=== PATIENT | female | born 1975 | race African-American/Black ===

== ENCOUNTER → 2017-07-13 | Emergency (ER) | payer SELFPAY ==
[~2017-07-13] VITALS: Ht 167.6 cm; Wt 71.7 kg
[2017-07-13 14:00] VITALS: BP 126/60
[2017-07-13 14:15] VITALS: BP 126/60
--- NOTE | 2017-07-13 14:38 | Emergency Room Report ---
History of Present Illness General Chief Complaint: Skin Rash/Abscess Source: Patient, EMS Present Illness HPI 42-year-old female brought in by ambulance for "rash" to right lower extremity 4 or 5 months. Patient states she just got back from [place] where she was visiting her mother for many months. Patient states she cames from [facility] where it [facility] sent her to the ER for IV antibiotics. patient states she's on prednisone daily, and additional antibiotics. Denies history of diabetes. Denies any new trauma, fever or chills. As I was discussing HPI, I began removing JEANETTE wrap and patient yelled stating it hurt. But then in full view of myself and RN, patient tore off the layer of bandage directly on the wound. History of present illness otherwise limited as patient became physically aggressive, and using foul language, cursing at physician, yelling very loudly in the ER, disrupting the ER, and not allowing additional history of present illness or physical exam to proceed. Allergies: Coded Allergies: CIPROFLOXACIN (Verified Allergy, Severe, Hives, 07/13/17) PENICILLINS (Verified Allergy, Severe, Anaphylaxis, 07/13/17) SHELLFISH DERIVED (Unverified Allergy, Severe, ANAPHYLAXIS, 07/13/17) COPIED FROM UNCODED SECTION Uncoded Allergies: MACADAMIA NUT (Allergy, Severe, Anaphylaxis, 07/13/17) Patient History Past Medical History: none Past Surgical History: none Pertinent Family History: none Social History: Denies: smoking, alcohol use, drug use Last Menstrual Period: na Now: No Immunizations: UTD Reviewed Nursing Documentation: PMH: Agreed, PSxH: Agreed Nursing Documentation-PMH Past Medical History: No History, Except For Hx Cardiac Problems: Yes Hx Asthma: Yes History Of Psychiatric Problem: Yes - depression Review of Systems All Other Systems: negative except mentioned in HPI Physical Exam Vital Signs Date Time Temp Pulse Resp B/P (MAP) Pulse Ox O2 Delivery O2 Flow Rate FiO2 07/13/17 13:50 97.5 60 18 126/60 98 Room Air Sp02 EP Interpretation: reviewed, normal General Appearance: normal inspection, well appearing, no apparent distress, alert, GCS 15, non-toxic, other Head: normocephalic, atraumatic ENT: normal ENT inspection, hearing grossly normal, normal voice Neck: normal inspection, full range of motion, supple, no bony tend Respiratory: normal inspection, lungs clear, normal breath sounds, no respiratory distress, no retraction, no wheezing Cardiovascular #1: regular rate, rhythm, no edema Gastrointestinal: normal inspection, normal bowel sounds, non tender, soft, no guarding, no hernia Genitourinary: no CVA tenderness Musculoskeletal: normal inspection, back normal, normal range of motion, Nai' s Sign negative Neurologic: normal inspection, alert, oriented x3, responsive, 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 Medical Decision Making Diagnostic Impression: Primary Impression: Rash and other nonspecific skin eruption ER Course Exam was limited as patient became aggressive and recovered up wound, however I do not see any signs of active infection, looks more like a poorly healing wound , there was no pus drainage, or serosanguineous drainage. VSS, Afebrile Patient asked multiple times to lower her voice, remaining stretcher, conductor self and respectful manner toward staff, however patient continued to yell. At this point I was not able to reason with patient. Efforts to de-escalate the situation were unsuccessful. Patient stated she wanted to go to another hospital. She did not wait for DC instructions. Last Vital Signs Date Time Temp Pulse Resp B/P (MAP) Pulse Ox O2 Delivery O2 Flow Rate FiO2 07/13/17 14:00 97.5 18 126/60 98 Room Air 07/13/17 13:50 60 Status: improved Disposition: HOME, SELF-CARE NATASHA BELL M.D. Jul 13, 2017 14:38
== END | disposition home or self-care (01) ==
LOC: EDBD 13:59 → EMR 14:15
DX: R21 Rash and other nonspecific skin eruption (principal); J45.909 Unspecified asthma, uncomplicated; Z88.0 Allergy status to penicillin; Z91.013 Allergy to seafood; Z91.018 Allergy to other foods
CPT/HCPCS: 99282